=== PATIENT | female | born 1975 | race Caucasian/White ===

== ENCOUNTER 2017-12-15 06:39 | Day surgery (SDC) | payer OTHER ==
[2017-12-15] MEDS ORDERED: CEFAZOLIN 1 GM INJ (07:00)
[2017-12-15] MEDS ORDERED: PROPOFOL 200 MG INJ (07:00)
[2017-12-15] MEDS ORDERED: METOCLOPRAMIDE 10 MG INJ (07:00)
[2017-12-15] MEDS ORDERED: MIDAZOLAM 1 MG/ML 2 ML INJ (08:13)
[2017-12-15] MEDS ORDERED: FENTAnyl 50 MCG/ML VIAL (08:14)
[2017-12-15] MEDS ORDERED: ONDANSETRON 4 MG INJ (08:14)
[2017-12-15] MEDS ORDERED: [UNRECOGNIZED DRUG - REMARK] XX (09:00)
[2017-12-15] MEDS ORDERED: BACITRACIN/POLYMYXIN 28.35 GM OINT TOP (09:24)
[2017-12-15] MEDS: LIDOCAINE 1% (MPF) 30 ML INJ INJ (09:32)
[2017-12-15] MEDS ORDERED: LIDOCAINE 1% (MPF) 30 ML INJ (09:37)
[2017-12-15] MEDS ORDERED: ROPIVACAINE 0.5 % 30 ML VIAL (09:37)
[2017-12-15] MEDS: CEFAZOLIN 2 GM/50 ML (PMX) 50 ML IVPB (09:45)
[2017-12-15] MEDS ORDERED: LIDOCAINE 2% (SDV) 5 ML INJ (10:06)
[2017-12-15] MEDS ORDERED: LACTATED RINGER'S 1,000 ML IV (10:11)
[2017-12-15] MEDS ORDERED: KETOROLAC 30 MG INJ IV (10:30)
[2017-12-15] MEDS ORDERED: ONDANSETRON 4 MG INJ IV (10:30)
[2017-12-15] MEDS ORDERED: HYDROCODONE/APAP (5/325) TAB PO (10:30)
[2017-12-15] MEDS ORDERED: morphine 2 MG INJ IV (10:30)
[2017-12-15] MEDS ORDERED: IBUPROFEN 600 MG TAB PO (10:30)
[2017-12-15] MEDS ORDERED: OXYCODONE/ACETAMINOPHEN (5/325) TAB PO ×2 (10:30)
[2017-12-15] MEDS ORDERED: morphine 10 MG INJ IM (10:30)
[2017-12-15] MEDS: HYDROCODONE/APAP (5/325) TAB PO (12:13)
== END 2017-12-15 12:36 | disposition home or self-care (01) ==
LOC: SDS 06:39
DX: M65.831 Other synovitis and tenosynovitis, right forearm (principal); G56.01 Carpal tunnel syndrome, right upper limb; M06.9 Rheumatoid arthritis, unspecified; M77.9 Enthesopathy, unspecified
CPT/HCPCS: 64721; 88304

== ENCOUNTER 2018-01-14 12:57 | Day surgery (SDC) | payer OTHER ==
[~2018-01-14 12:57] MED LIST: CEFAZOLIN 2 GM/50 ML (PMX) 50 ML IVPB
[2018-01-14 14:26] LABS: ADD MAN DIFF? NO
[2018-01-14 14:28] LABS: BASOPHIL # 0.1 10^3/ul (0.0-0.1); BASOPHILS % 0.6 % (0.0-2.0); EOSINOPHILS # 0.1 10^3/ul (0.0-0.5); EOSINOPHILS % 0.9 % (0.0-7.0); HEMOGLOBIN 11.1 g/dl (12.0-16.0); LYMPHOCYTES # 1.7 10^3/ul (0.8-2.9); LYMPHOCYTES % 15.5 % (15.0-51.0); MEAN CORPUSCULAR HEMOGLOBIN 27.4 pg (29.0-33.0); MEAN CORPUSCULAR HGB CONC 32.6 g/dl (32.0-37.0); MEAN PLATELET VOLUME 9.7 fl (7.4-10.4); MONOCYTE # 0.6 10^3/ul (0.3-0.9); MONOCYTES % 5.7 % (0.0-11.0); NEUTROPHIL # 8.3 10^3/ul (1.6-7.5); PLATELET COUNT 365 10^3/UL (140-415); RED BLOOD COUNT 4.05 10^6/ul (4.20-5.40); RED CELL DISTRIBUTION WIDTH 14.9 % (11.5-14.5)
[2018-01-14 14:28] LABS: WHITE BLOOD COUNT 10.7 10^3/ul (4.8-10.8)
[2018-01-14 14:43] LABS: ANION GAP 14 (8-16); CARBON DIOXIDE 26 mmol/L (21-31); CHLORIDE 104 mmol/L (97-110); GLUCOSE 95 mg/dl (70-220)
[2018-01-14 14:45] LABS: BLOOD UREA NITROGEN 11 mg/dl (7-20); CALCIUM 8.8 mg/dl (8.4-10.2); CREATININE 0.69 mg/dl (0.44-1.00); POTASSIUM 4.1 mmol/L (3.5-5.1); SODIUM 140 mmol/L (135-144)
[2018-01-14] MEDS ORDERED: POLYMYXIN/BACITRACIN 1L IRRIG (15:14)
[2018-01-14] MEDS ORDERED: BUPIVACAINE 0.25% (MPF) 30 ML INJ (15:14)
[2018-01-14] MEDS ORDERED: POVIDONE IODINE 10% 28.4 GM OINT (15:17)
[2018-01-14] MEDS ORDERED: LACTATED RINGER'S 1,000 ML IV (15:47)
[2018-01-14] MEDS ORDERED: OXYCODONE/ACETAMINOPHEN (5/325) TAB PO (16:00)
[2018-01-14] MEDS ORDERED: ONDANSETRON 4 MG INJ IV (16:00)
[2018-01-14] MEDS ORDERED: HYDROmorphONE 0.5 MG/0.5 ML SYG IV (16:00)
[2018-01-14] MEDS ORDERED: IBUPROFEN 600 MG TAB PO (16:00)
[2018-01-14] MEDS ORDERED: DIPHENHYDRAMINE 50 MG INJ IV (16:00)
[2018-01-14] MEDS ORDERED: morphine 2 MG INJ IV (16:00)
[2018-01-14] MEDS ORDERED: CEPASTAT LOZENGE MT (16:00)
[2018-01-14] MEDS ORDERED: ACETAMINOPHEN 325 MG TAB PO (16:00)
[2018-01-14] MEDS ORDERED: PROPOFOL 20 ML (16:02)
[2018-01-14] MEDS ORDERED: LIDOCAINE 1% (MDV) 20 ML INJ (16:02)
[2018-01-14] MEDS ORDERED: MIDAZOLAM 1 MG/ML 2 ML INJ (16:02)
[2018-01-14] MEDS: LIDOCAINE 1% (MPF) 30 ML INJ (16:05)
[2018-01-14] MEDS: BUPIVACAINE 0.5% (SDV) 30 ML INJ (16:05)
[2018-01-14] MEDS ORDERED: FAMOTIDINE 20 MG INJ (16:08)
[2018-01-14] MEDS ORDERED: ONDANSETRON 4 MG INJ (16:08)
[2018-01-14] MEDS ORDERED: CEFAZOLIN 1 GM INJ (16:08)
[2018-01-14] MEDS ORDERED: HYDROCODONE/APAP (5/325) TAB PO (17:00)
[2018-01-14] MEDS ORDERED: GABAPENTIN 300 MG CAP PO (21:00)
[2018-01-14] MEDS ORDERED: AMITRIPTYLINE 50 MG TAB PO (21:00)
[2018-01-14] MEDS ORDERED: BACLOFEN 10 MG TAB PO (21:00)
[2018-01-15] MEDS ORDERED: ESCITALOPRAM 10 MG TAB PO (09:00)
== END 2018-01-14 18:21 | disposition home or self-care (01) ==
LOC: SDS 12:57
DX: G56.02 Carpal tunnel syndrome, left upper limb (principal); M77.8 Other enthesopathies, not elsewhere classified
CPT/HCPCS: 64721; 80048; 85025; 88304